=== PATIENT | female | born 1940 | race Caucasian/White ===

== ENCOUNTER 2021-02-20 17:28 | Inpatient (IN) | payer OTHER, MEDICARE, BC ==
[~2021-02-20] VITALS: Ht 157.5 cm; Wt 86.2 kg
[2021-02-20 19:25] VITALS: BP 170/80; PULSE 90; TEMP 98.7
[2021-02-20 20:00] VITALS: BP 154/69; PULSE 87; TEMP 98.7
--- NOTE | 2021-02-20 20:00 | NUR ---
PT ARRIVES TO ROOM WITH EMS, TRANSFERRED FROM ANOTHER FACILITY. PT IS MOVED INTO BED USING SLIDE BOARD ET SHEETS, GROANS IN PAIN WHEN MOVED. RICO CATHETER IS IN PLACE. 2 SKIN TEARS NOTED ON PT'S RIGHT ARM, COVERERED BY TRANSPARENT DRESSING. DRESSINGS REMOVED ET SURROUNDING SKIN CLEANED. MEPILEX DRESSINGS APPLIED. PT REPORTS FALLING @ HOME, NORMALLY USES CANE TO AMBULATE BUT HAS A WALKER ALSO FROM A PREVIOUS LEFT HIP FX. HIGH FALL RISK PRECAUTIONS PUT INTO PLACE. PT HAS PERIPHERAL IV IN PLACE ON LEFT WRIST. PT STATES THAT SHE IS WORRIED ABOUT SLEEPING TONIGHT R/T PAIN. SIENNA ZAMORA ET SCDs PLACED ON UNAFFECTED LEFT LEG. BILATERAL PEDAL PULSES ARE STRONG. PT ARRIVES WITH 2L O2 VIA NC, EMS REPORTS THAT HER SATS HAVE REMAINED @ 98% DURING TRANSFER, PT DENIES USING HOME OXYGEN. OXYGEN SATS ARE 96-100%. OXYGEN IS REMOVED ET PT CONTINUES TO SAT @ 95% ON RA. ICE PLACED TO RIGHT HIP. PT ORIENTED TO ROOM, CALL LIGHT ET FALL PRECAUTIONS. PT VERBALIZES UNDERSTANDING. BED ALARM ON. CALL LIGHT WITHIN REACH.
[2021-02-20 21:01] LABS: INR 1.2 (0.8-3.0); PROTHROMBIN TIME 13.7 SECONDS (9.7-12.8)
[2021-02-20] MEDS ORDERED: ZOCOR 20MG20 MG PO (21:10)
[2021-02-20] MEDS ORDERED: MASON NATURAL2000 IU PO (21:12)
[2021-02-20] MEDS ORDERED: PLAVIX 75MG TAB75 MG PO (21:13)
[2021-02-20] MEDS ORDERED: NEURONTIN400 MG/CAP PO (21:13)
[2021-02-20] MEDS ORDERED: CYANOCOBAL1000 MCG/M IM (21:14)
[2021-02-20] MEDS ORDERED: PRINIVIL40 MG PO (21:15)
[2021-02-20] MEDS ORDERED: TOPROL XL 25MG25 MG PO (21:17)
[2021-02-20] MEDS ORDERED: EUTHYROX100 MCG PO (21:18)
[2021-02-21] VITALS (7 sets, daily range): BP systolic 104–148; BP diastolic 51–64; PULSE 59–77; TEMP 97.9–99.8
[2021-02-21 06:49] LABS: BASO % 0.4 % (0.0-2.0); EOS % 0.6 % (0-4.0); GRAN # 5.4 K/mm3 (1.4-6.5); GRAN % 77.4 % (42.2-75.2); HEMOGLOBIN 11.9 g/dl (12.5-16.0); LYMPH # 0.6 K/mm3 (1.2-3.4); LYMPH % 7.9 % (20.0-51.0); MEAN CELL VOLUME 99 fl (80.0-100.0); MEAN CORPUSCULAR HEMOGLOBIN 34 pg (27.0-31.0); MEAN CORPUSCULAR HGB CONC 34 g/dl (33.0-37.0); MONO # 0.9 K/mm3 (0.1-0.6); MONO % 13.3 % (1.7-9.3); PLATELET COUNT 157 K/mm3 (130-400); RED BLOOD COUNT 3.51 M/mm3 (4.10-5.30); REDCELL DISTRIBUTION WIDTH-CV 13.1 % (11.5-14.5)
[2021-02-21 06:54] LABS: HEMATOCRIT 34.8 % (37.0-47.0)
[2021-02-21 07:07] LABS: CALCIUM 8.8 mg/dL (8.4-10.2); CREATININE, serum 0.8 mg/dL (0.57-1.11); POTASSIUM 4.1 mmol/L (3.5-4.5)
--- NOTE | 2021-02-21 08:00 | NUR ---
Shift assessment complete. Pt laying in bed with ice to right hip. Pt will be NPO at midnight tonight. No redness or pain to peripheral line in left hand. Petit catheter in place with securement device, urine output dark yellow and clear. Pt has SCD to left leg. Reports generalized 6/10 pain to right lower extremity due to fracture. Left pt with call light within reach.
[2021-02-21 10:13] LABS: COLLECTION METHOD CATHETER
[2021-02-21 10:47] LABS: MUCOUS Present /lpf; PH 5 (5-8); SQUAMOUS EPITHELIAL 0-2 /hpf; URINE APPEARANCE Hazy; URINE BACTERIA None Seen /hpf; URINE BILIRUBIN Negative (NEGATIVE); URINE BLOOD 2+ (NEGATIVE); URINE COLOR Yellow; URINE GLUCOSE Negative (NEGATIVE); URINE KETONE Negative (NEGATIVE); URINE LEUKOCYTE ESTERASE Negative (NEGATIVE); URINE NITRATE Negative (NEGATIVE); URINE PROTEIN(semi-quant) Negative (NEGATIVE); URINE RBC 20-50 /hpf; URINE UROBILINOGEN >=4.0 mg/dL (NEGATIVE)
--- NOTE | 2021-02-21 11:08 | NUR ---
SW met with patient at bedside to discuss d/c plan. Patient states she lost her husb a couple of yrs ago and now [place] alone [place]. Patient has 3 daughters, all of whom live in other states. Patient is planning to move to [place] where her daughter Alyce Dugan lives. Her contact number is [phone]. All 3 of her daughters are currently en route to see their mother and all 3 are listed as patient's MPOA. She uses [facility] in [place] to obtain her prescriptions and she gets them with no difficulty affording them. She has a walker but states she doesn't use it as she is quite active normally. PCP is Dr. Rodrigo Abdul in [place] and she states that if she needs to go to rehab she wants [facility]
[2021-02-21] MEDS ORDERED: ANUSOL-HC2.5% RC (11:24)
--- NOTE | 2021-02-21 13:13 | NUR ---
Initial visit; Patient requested that Braid Folder contact a Recycling Center Operator for Anointing prior to her Surgical Procedure tomorrow. Braid Folder did so.
--- NOTE | 2021-02-21 15:01 | NUR ---
Referral sent to [facility] per patient's request. MEGAN contacted [facility], spoke with Janeth ([phone]) and informed her of patient's date of surgery. MEGAN provided her with this number and will cont to follow.
[2021-02-22] VITALS (11 sets, daily range): BP systolic 106–148; BP diastolic 52–81; PULSE 56–80; TEMP 97–98
--- NOTE | 2021-02-22 01:54 | NUR ---
PT RESTING QUIETLY IN BED. SLEEPING BUT AROUSES EASILY TO NAME. ICE PACK ON RIGHT HIP. SCDs ON, FLUIDS INFUSING. RICO DRAINING CLEAR SUZE URINE. PT BECAME NPO @ MIDNIGHT. BED ALARM IS ON, CALL LIGHT WITHIN REACH.
--- NOTE | 2021-02-22 03:22 | NUR ---
PT IS AWAKE @ THIS TIME. PT HAS BEEN LAYING FLAT ON HER BACK IN BED ALL NIGHT. PT PREVIOUSLY REFUSED TO MOVE. EDUCATED PT ON IMPORTANCE OF TURNING IN BED FREQUENTLY. PT NOW APPEARS TO BE CROOKED IN BED, LYING MOSTLY ONTO HER AFFECTED RIGHT HIP ET IS UNABLE TO MOVE SELF. REPOSITIONED WITH 2 PERSON ASSIST, PILLOW PLACED BEHIND RIGHT HIP ET BETWEEN KNEES. PT YELLS OUT WITH MOVEMENT. PAIN PILL ADMINISTERED ET FRESH ICE PACK PLACED ON RIGHT HIP. BED ALARM, CALL LIGHT WITHIN REACH. WILL CONTINUE TO MONITOR.
--- NOTE | 2021-02-22 06:28 | NUR ---
PT IS PLEASANT ET TALKATIVE THIS MORNING, STATES THAT HER PAIN HAS IMPROVED. LAB IS IN DRAWING BLOOD @ THIS TIME. PT'S DAUGHTER DESMOND HAS CALLED, UPDATED ON PT CONDITION.
[2021-02-22 06:58] LABS: HEMOGLOBIN 12.5 g/dl (12.5-16.0); MEAN CELL VOLUME 100 fl (80.0-100.0); MEAN CORPUSCULAR HEMOGLOBIN 34 pg (27.0-31.0); MEAN CORPUSCULAR HGB CONC 34 g/dl (33.0-37.0); MEAN PLATELET VOLUME 9.9 fl (7.4-10.4); PLATELET COUNT 116 K/mm3 (130-400); RED BLOOD COUNT 3.72 M/mm3 (4.10-5.30)
[2021-02-22 07:13] LABS: CALCIUM 8.8 mg/dL (8.4-10.2); CREATININE, serum 0.75 mg/dL (0.57-1.11); POTASSIUM 4.1 mmol/L (3.5-4.5)
--- NOTE | 2021-02-22 08:50 | NUR ---
PT RESTING IN BED. DAUGHTER AT BEDSIDE. ANSWERED MANY QUESTIONS. AM MEDS AND PO PAIN MEDS GIVEN. PT AND DAUGHTER ANXIOUS. OFFERED REASSURANCE. WAITING ON MEDICAL CLEARANCE TO PROCEED WITH PLANNED PROCEDURE WITH DR. MIRANDA.
--- NOTE | 2021-02-22 09:35 | NUR ---
Follow-up; Patient and her daughter thanked for contacting a Odd Ticket Clerk who visited and offered Anointing yesterday and for prayer this morning prior to her surgical procedure.
--- NOTE | 2021-02-22 11:27 | NUR ---
CARYN spoke with Janeth (caryn) at [facility]; they aren't able to give me an absolute answer depending on their census and staff availability over the weekend as well as Dr. Argueta returning on Friday after being gone for 3 weeks. They will NOT accept any patients over the weekend. CARYN spoke with daughter in patient's room, Alyce Dugan, who states the surgeon told her this a.m. that she would not have to transport patient if she went to [facility]. This worker explained the transporting process with [facility] but if medically necessary, patient may go EMS. Patient and dtr expressed interest in backup plan for rehab to [facility] in [place]. CARYN sent referral to [facility] as a 2nd choice. CARYN will keep daughter informed and reminded pt and dtr that SW will also be here through the weekend if they have questions. D/C Plan: Skilled Rehab
--- NOTE | 2021-02-22 11:55 | NUR ---
PT TO SURGERY AT THIS TIME WITH [facility]. CONSENT ON CHART.
--- NOTE | 2021-02-22 16:32 | NUR ---
PT TO ROOM 325 PER BED WITH REPORT FROM SUZE CASEY PACU @4960. VSS, ASSESSMENTS COMPLETE. AQUACEL TO RIGHT HIP CDI. SCDS PLACED BILATERALLY. DAUGHTER AND SON AT BEDSIDE. IV TO PUMP PER ORDERS.
--- NOTE | 2021-02-22 17:01 | NUR ---
tea plantation worker met with patient and daughter, Alyce Joshi [phone] and discussed discharge plans. Patient's desires for rehab are 1. [facility] 2. [facility] and 3. [facility]. Eladia and patient verbalize understanding that if [facility] cannot accept patient upon discharge, [facility] or [facility] home will be needed. Awaiting confirmation on the nursing facilities. Alyce Joshi states if [facility] is secured that she can transport on the weekend and another family member will be available if discharge is after the weekend.
--- NOTE | 2021-02-22 18:45 | NUR ---
PT RESTINGIN BED. REPORT RECEIVED FROM DANA CASEY. PT COMFORTBLE AT THIS TIME. ICE PACK TO RT HIP. CALL LIGHT IN REACH. BED ALARM SET.
[2021-02-23 00:52] VITALS: BP 93/53; PULSE 58; TEMP 97.7
[2021-02-23 04:04] VITALS: BP 116/51; PULSE 66; TEMP 98.1
[2021-02-23 07:08] LABS: HEMATOCRIT 31.8 % (37.0-47.0)
[2021-02-23 08:00] VITALS: BP 111/67; PULSE 61; TEMP 98
--- NOTE | 2021-02-23 10:23 | NUR ---
SW spoke with patient to inform her that [facility] has no availability and does not accept patients over the weekend. Patient requested referral be sent to [facility]. SW spoke with AVI Delgado and SW sent referral for their review. MEGAN will continue following with d/c plan
--- NOTE | 2021-02-23 11:01 | NUR ---
SW spoke with patient about possible Inpatient Rebab at [facility]. Patient is agreeable but wants to confirm with her dtr when she arrives today. SW spoke with Lydia/SERINA and she will meet with patient once dtr is here.
[2021-02-23 11:32] VITALS: BP 113/52; PULSE 62; TEMP 97.9
--- NOTE | 2021-02-23 14:34 | NUR ---
Lydia accepts patient to Inpatient Rehab today and will arrange for patient to transfer when medically ready. Family notified and pleased.
[2021-02-23 15:50] VITALS: BP 114/52; PULSE 74; TEMP 98.1
--- NOTE | 2021-02-23 19:04 | NUR ---
PT COMPLAINS OF RT HIP PAIN. MEDICATED WITH OXYCODONE 5MG PO NOW. HAS SL TO LEFT FOREARM, FLUSHES WELL. JOHN GUERRERO TO RT HIP INTACT. JACKY TO BSD, WILL DC JACKY IN AM.
[2021-02-23 20:16] VITALS: BP 110/50; PULSE 66; TEMP 98.8
[2021-02-24] VITALS (7 sets, daily range): BP systolic 102–119; BP diastolic 50–68; PULSE 54–74; TEMP 97.9–98.9
--- NOTE | 2021-02-24 03:00 | NUR ---
COMPLAINS OF RT HIP PAIN. OXYCODONE 5MG PO AND ICE PACK APPLIED.
[2021-02-24 06:54] LABS: HEMATOCRIT 29.4 % (37.0-47.0)
[2021-02-24 06:57] LABS: CALCIUM 8.6 mg/dL (8.4-10.2); CREATININE, serum 0.79 mg/dL (0.57-1.11); POTASSIUM 3.8 mmol/L (3.5-4.5)
--- NOTE | 2021-02-24 07:24 | NUR ---
Patient is sleeping in bed. Call light and bedside table are within reach. Will continue to monitor patient throughout shift.
--- NOTE | 2021-02-24 11:52 | NUR ---
Patient's is at bedside
[2021-02-24] MEDS ORDERED: TYLENOL 500MG500 MG PO (14:45)
[2021-02-24] MEDS ORDERED: ASPIRIN E.C. 8181 MG PO (14:47)
[2021-02-24] MEDS ORDERED: ROXICODONE 55 MG/TAB PO (14:48)
--- NOTE | 2021-02-24 21:00 | NUR ---
PT ASKING FOR COMMUNION ON FRIDAY, RESIDENT PHYSICIAN AWARE. PT TAKES HS MEDS WITHOUT PROBLEM. HAS MEPILEX TO RT ELBOW AND WRIST. WEARING OXYGEN AT 1L/NC. HAS AQUACEL DRSG TO RT HIP, D/I. SL TO LEFT WRIST FLUSHES WELL. PT READY FOR BED.
--- NOTE | 2021-02-25 02:43 | NUR ---
PT ASSISTED TO BSC, MEPILEX TO COXXYX LOOSE AND CHANGED AT THIS TIME. VOIDS AND BACK TO BED. MEDICATED WITH SCHEDULED ES TYLENOL AND OXYCODONE FOR PAIN TO RT HIP.
[2021-02-25 03:26] VITALS: BP 93/47; PULSE 57; TEMP 98.1
--- NOTE | 2021-02-25 07:26 | NUR ---
Patient resting comfortably in bed. Call light and bedside table are within reach. Will continue to monitor throughout shift.
[2021-02-25 09:04] VITALS: BP 121/50; PULSE 71; TEMP 98.6
--- NOTE | 2021-02-25 10:51 | NUR ---
Patient is transferring from Surgical RM 225 to IPR room 240.
== END 2021-02-25 10:52 | DRG 522 ==
LOC: MEDICAL 17:28 → SURG 19:15
PROVIDERS: Orthopaedic Surgery; Physician Assistant; Student in an Organized Health Care Education/Training Program; ADMIT Internal Medicine
PROC: 0LQL0ZZ Repair Right Upper Leg Tendon, Open Approach (ICD-10-PCS; 2021-02-22)
PROC: 0SRR0J9 Replacement of Right Hip Joint, Femoral Surface with Synthetic Substitute, Cemented, Open Approach (ICD-10-PCS; principal; 2021-02-22 12:00)
DX: S72.001A Fracture of unspecified part of neck of right femur, initial encounter for closed fracture (principal); D62 Acute posthemorrhagic anemia; I25.10 Atherosclerotic heart disease of native coronary artery without angina pectoris; G62.9 Polyneuropathy, unspecified; I10 Essential (primary) hypertension; E03.9 Hypothyroidism, unspecified; E78.5 Hyperlipidemia, unspecified; Z66 Do not resuscitate; D51.0 Vitamin B12 deficiency anemia due to intrinsic factor deficiency; H49.20 Sixth [abducent] nerve palsy, unspecified eye; S76.911A Strain of unspecified muscles, fascia and tendons at thigh level, right thigh, initial encounter; Z96.653 Presence of artificial knee joint, bilateral; W18.30XA Fall on same level, unspecified, initial encounter; Y93.89 Activity, other specified; Y92.008 Other place in unspecified non-institutional (private) residence as the place of occurrence of the external cause; Z95.5 Presence of coronary angioplasty implant and graft; Z86.73 Personal history of transient ischemic attack (TIA), and cerebral infarction without residual deficits; Z23 Encounter for immunization
CPT/HCPCS: 99223-AI; 99232-AI; 99239; A9284; C1713; C1776; J0690; J1100; J2250; J2270; J2405; J2704; J2795; J3010

== ENCOUNTER 2021-02-23 14:55 | Inpatient (IN) | payer MEDICARE, BC ==
[~2021-02-23] VITALS: Ht 160 cm; Wt 84.0 kg
[~2021-02-23 14:55] MED LIST: ANUSOL-HC2.5% RC; CYANOCOBAL1000 MCG/M IM; EUTHYROX100 MCG PO; MASON NATURAL2000 IU PO; NEURONTIN400 MG/CAP PO; PLAVIX 75MG TAB75 MG PO; PRINIVIL40 MG PO; TOPROL XL 25MG25 MG PO; ZOCOR 20MG20 MG PO
[2021-02-24] MEDS ORDERED: TYLENOL 500MG500 MG PO (14:45)
[2021-02-24] MEDS ORDERED: ASPIRIN E.C. 8181 MG PO (14:47)
[2021-02-24] MEDS ORDERED: ROXICODONE 55 MG/TAB PO (14:48)
--- NOTE | 2021-02-25 12:00 | NUR ---
Patient arrived to IPR room 340 via WC. Patient is A & O x 4 and is requesting a pain med. This nurse informed patient she would have to wait until her orders are put in to administer medication and this nurse would give her pain meds MIK. Patient also requested to go to the bathroom. This nurse took patient via WC but patient walked back to the bed with a walker. Patient is x 1 asst. Patient has a right hip fracture and had surgery on 02/22/21. Patient is now resting comfortable in bed. Call light and bedside table are within reach.
[2021-02-25 14:42] VITALS: BP 146/74; PULSE 64; TEMP 98.6
--- NOTE | 2021-02-25 15:15 | NUR ---
Patient's 02 dropped to 86% but when this nurse had patient to take a few deep breaths in through the nose and out of the mouth, patient's SATs went to 95%/ Will continue to monitor throughout shift.
[2021-02-25 18:25] VITALS: BP 151/59; PULSE 63; TEMP 98.6
[2021-02-26 05:46] VITALS: BP 123/62; PULSE 59; TEMP 98.3
--- NOTE | 2021-02-26 07:15 | NUR ---
SCHEDULED MEDICATIONS GIVEN. SHIFT ASSESSMENT PREFORMED. PATIENT DENIES ANY PAIN OR DISCOMFORT, BUT REQUESTS THAT PAIN PILL BE GIVEN BEFORE SHE GOES DOWN FOR PT. SIENNA HOSE ON. VSS. PATIENT A&O. DENIESA ANY FURTHER NEEDS AT THIS TIME. CALL LIGHT IN REACH. FALL PRECAUTIONS IN PLACE.
--- NOTE | 2021-02-26 07:15 | NUR ---
CHANGE OF SHIFT REPORT GIVEN TO DAY SHIFT NURSE, TOÑITO CASEY.
[2021-02-26 08:23] LABS: BASO % 0.6 % (0.0-2.0); EOS # 0.1 K/mm3 (0.0-0.7); EOS % 1.8 % (0-4.0); GRAN # 4.7 K/mm3 (1.4-6.5); HEMOGLOBIN 11.1 g/dl (12.5-16.0); LYMPH # 0.6 K/mm3 (1.2-3.4); LYMPH % 9.7 % (20.0-51.0); MEAN CELL VOLUME 100 fl (80.0-100.0); MEAN CORPUSCULAR HEMOGLOBIN 34 pg (27.0-31.0); MEAN CORPUSCULAR HGB CONC 34 g/dl (33.0-37.0); MEAN PLATELET VOLUME 9.8 fl (7.4-10.4); MONO # 0.6 K/mm3 (0.1-0.6); MONO % 10.1 % (1.7-9.3); PLATELET COUNT 179 K/mm3 (130-400); RED BLOOD COUNT 3.26 M/mm3 (4.10-5.30)
[2021-02-26 08:27] LABS: HEMATOCRIT 32.5 % (37.0-47.0)
[2021-02-26 08:32] LABS: CALCIUM 9.1 mg/dL (8.4-10.2); CREATININE, serum 0.72 mg/dL (0.57-1.11); MAGNESIUM 1.9 mg/dL (1.6-2.6); POTASSIUM 3.9 mmol/L (3.5-4.5)
--- NOTE | 2021-02-26 15:27 | NUR ---
Senior Network Security Engineer was contacted by patient's daughter, Alyce (ph#[phone]) who advised she is back in [place] now and patient's fpc plan is to move up to [place]. Alyce advised they have an apartment lined up for patient there, they just need her to be stable enough for a [address]. Alyce advised patient will be transitioning primary care to Dr. Shirley Puente in [place] and has an appointment scheduled in March. Alyce emailed MEGAN patient's DPOA-HC paperwork which lists Alyce and her two sisters as DPOA-HC. MEGAN placed form on patient's chart. MEGAN met with patient as she is new to [facility]. Patient currently lives in [place], [place] and sees Dr. Abdul for primary care. Patient will be transitioning to [place], where her daughter lives. Patient normally obtains medications from [facility] pharmacy in [place]. Patient is concerned about her medications at discharge as her daughter took all of her medications with her back to [place]. Patient's daughter also took her walker with her. Patient reports she has canes at home and is normally very active. Patient advised the apartment in [place] is one level with no stairs. MEGAN will continue to follow for discharge needs.
[2021-02-26 17:05] VITALS: BP 155/62; PULSE 74; TEMP 98.2
--- NOTE | 2021-02-26 18:05 | NUR ---
Patient has had an ok day. Has been C/O of pain in her right hip. PRN medication given as ordered. Patient currently resting in bed SIENNA hose and SCD's on. Patient only ate 50% of meal. Karl crackers and pudding given to patient for snack later on. Patient denies any further pain, discomfort, or needs at this time. Call light in reach. Fall precautions in place. VSS. Patient A&O.
--- NOTE | 2021-02-26 18:48 | NUR ---
RECEIVED CHANGE OF SHIFT REPORT FROM DAY SHIFT NURSE.
--- NOTE | 2021-02-26 23:22 | NUR ---
PATIENT SLEEPING, DOES NOT WAKE WHEN ROOM ENTERED BY STAFF NURSE ON ROUNDS. BREATHING NONLABORED AND EVEN. BED ALARM ON WHEN IN BED WITH CALL LIGHT WITHIN REACH.
[2021-02-27 02:39] VITALS: BP 151/59; PULSE 72; TEMP 98.4
--- NOTE | 2021-02-27 03:20 | NUR ---
PATIENT REPORTS ANXIETY WITH NEW ONSET OF LEFT UPPER ABD PAIN THAT IS SHARP... "I FEEL LIKE I'M GOING TO ". ABD SOFT TO PALPATION TO ABD ALIVIA AND IN ALL QUADRANTS. OBSERVED PATIENT PASSING FLATUS. WHEN ASKED IF SHE WAS SOA, PATIENT REMARKED "I'M NOT SURE" VS DONE, SEE [employer], OBSERVING OXYGEN SATURATION AT 93 PERCENT ON ROOM AIR, PATIENT STATING SHE IS UNABLE TO TAKE A DEEP BREATH. SKIN WARM DRY, COLOR NORMAL. DENIES CHEST PRESSURE. CALLED ONCALL HOSP PROVIDER, INFORMED OF VS AND PATIENT'S COMPLAINT AND CONCERNS. ORDERS ENTERED BY PROVIDER, PLAN FOR ABD U.S. IN AM. PATIENT INFORMED OF PROVIDERS ORDERS FOR PAIN MED CHANGES AND TESTING ORDERED FOR MORNING. PATIENT AGREED TO HEATING PAD AND TAKING NEW PAIN MED WHEN AVAILABLE. PATIENT REPORTS NOT SURE ABOUT TAKING STOOL SOFTENERS OR MIRALAX. DENIES NAUSEA AT THIS TIME.
--- NOTE | 2021-02-27 03:29 | NUR ---
OFFERED DULCOLAX SUPPOSITORY AFTER PATIENT TOOK ULTRAM, PATIENT REFUSED SUPP AT THIS TIME. PATIENT STATED SHE WILL LET STAFF NURSE KNOW WHEN SHE WILL TAKE MORE MEDICATION TO HELP WITH ABD DISCOMFORT.
--- NOTE | 2021-02-27 05:42 | NUR ---
REPORTS PAIN TO LEFT UPPER ABD HAS NOT CHANGED BUT HEATING PAD "HAS HELPED SOME... I WAS ABLE TO REST SOME"
[2021-02-27 05:44] VITALS: BP 139/65; PULSE 72
--- NOTE | 2021-02-27 06:53 | NUR ---
CHANGE OF SHIFT REPORT GIVEN TO DAY SHIFT NURSE, TOÑITO CASEY.
--- NOTE | 2021-02-27 07:45 | NUR ---
Upon entering patient's room, patient lying in bed with a heating pad placed on her Left Upper Quadrant. Patient C/O 9/10 sharp pain. Ultrasound scheduled for 0830. Scheduled medications given. PRN pain medication given. Shift assessment preformed. Assisted patient to the restroom. Upon getting back to the bed, patient stated that she felt nauseated and needed a container. Patient vomitted approximately 20 ml of yellow bile. Patient states that she feels better after doing so. Patient placed back in bed to rest. SIENNA hose on. SCD's refused. Patient denies any further needs at this time. Call light in reach. Fall precautions in place. VSS. Patient A&O.
[2021-02-27 17:29] VITALS: BP 137/82; PULSE 69; TEMP 98.1
--- NOTE | 2021-02-27 19:07 | NUR ---
Patient has had a rough day. Has not been able to eat much due to lack of appetite. Patient encouraged to drink ensures and other fluids. Patient has 3 episodes of emesis this shift, but refuses to take any medication for nausea. PRN pain medication given as requested. Patient is currently resting in bed. States that her stomach is feeling much better and has not had an episode of emesis since 1445. Patient denies any pain, discomfort, or further needs at this time. SCD's and SIENNA hose on. Call light in reach. Fall precautions in place. VSS. Patient A&O.
--- NOTE | 2021-02-27 19:25 | NUR ---
CHANGE OF SHIFT REPORT FROM DAY SHIFT NURSE. SLEEPING CURRENTLY, DOES NOT WAKE WHEN ROOM ENTERED BY STAFF ON ROUNDS. EXIT ALARM ON WHEN IN BED WITH CALL LIGHT WITHIN REACH.
--- NOTE | 2021-02-27 20:00 | NUR ---
DENIES CHEST PAIN/SOA/NAUSEA CURRENTLY. DENIES NUMBNESS/TINGLING TO EXTREMITIES. REPORTS HAS PASSED SMALL STOOL AND WILL CONTINUES TO TAKE STOOL SOFTENERS IF NEEDED. PATIENT REPORTS IS PLEASE THAT SHE WAS ABLE TO PARTICIPATE IN THERAPY DISPITE ABD DISCOMFORT. OBSERVED GAIT STEADY WITH WALKING TO BATHROOM, USING WW APPROPRIATELY.
[2021-02-28 04:50] VITALS: BP 96/47; PULSE 74; TEMP 98
--- NOTE | 2021-02-28 06:59 | NUR ---
Received report from JACINTO Kruger. Patient is in bed sleeping. Call light and bedside table are within reach. Will continue to monitor patient throughout shift.
--- NOTE | 2021-02-28 07:04 | NUR ---
CHANGE OF SHIFT REPORT GIVEN TO DAY SHIFT NURSE, JOSE ALBERTO CASEY.
--- NOTE | 2021-02-28 16:33 | NUR ---
Hemmer Chainstitch met with patient to provide copy of team conference notes. SW advised patient we are looking at a discharge date of 03/09/21. Patient is unsure about this timeframe but would like SW to contact her daughter, Alyce. SW provided copy of team conference notes. SW to contact daughterAlyce tomorrow.
[2021-02-28 18:00] VITALS: BP 140/64; PULSE 67; TEMP 98.4
--- NOTE | 2021-03-01 03:35 | NUR ---
PT ASSISTED INTO BR USING GAITBELT, WALKER ET SBA. PT VOIDS DARK YELLOW URINE. BECOMES UNSTEADY ON FEET WHILE GETTING UP FROM TOILET BUT RECOVERS WITH ASSISTANCE. PT DENIES OTHER NEEDS @ THIS TIME. REQUESTS TO HAVE PAIN PILL ADMINISTERED BEFORE PHYSICAL THERAPY. RESPIRATIONS UNLABORED. CALL LIGHT WITH REACH, BED ALARM ON.
[2021-03-01 04:48] VITALS: BP 100/56; PULSE 69; TEMP 98.2
--- NOTE | 2021-03-01 07:00 | NUR ---
Patient is in bed sleeping. Call light and bedside table are within reach. Will continue to monitor patient throughout shift.
--- NOTE | 2021-03-01 10:30 | NUR ---
Follow-up visit; Patient thanked Graduate Assistant for looking in on her and visiting and offering prayer. Graduate Assistant will continue to follow up.
--- NOTE | 2021-03-01 13:34 | NUR ---
Admission QIM scores were reviewed by the team. Code of 4 chosen for oral hygiene was determined by team discussion to be the most usual performance before interventions for this patient during the assessment period. Code of 3 chosen for sit to lying was determined by team discussion to be the most usual performance for this patient during the assessment period. Code of 3 chosen for lying to sitting on side of bed was determined by team discussion to be the most usual performance for this patient during the assessment period. Code of 3 for sit to stand was determined by team discussion to be the most usual performance for this patient during the assessment period. Code of 3 for chair/bed to chair transfers was determined by team discussion to be the most usual performance for this patient during the assessment period.--Lydia Moser, PD
--- NOTE | 2021-03-01 16:22 | NUR ---
Change Management Consultant followed up with patient's daughter, Alyce to provide update from yesterday's team conference. SW scheduled family meeting for Friday at 1300. Patient's other daughter, Deborah (ph#[phone]) will also participate. Home Health services are recommended and Alyce advised that [facility] in [facility] would be there preference as they provide services on campus where patient's independent living apartment will be. MEGAN to follow up with [facility].
[2021-03-01 17:37] VITALS: BP 118/54; PULSE 64; TEMP 98.2
--- NOTE | 2021-03-01 21:20 | NUR ---
PT RESTING IN BED. JUST RETURNED FROM BR- HAD ANOTHER LOOSE STOOL. SEE MAR FOR IMODIUM GIVEN. PLACED BOWEL MEDS ON PRN STATUS.
[2021-03-02 05:51] VITALS: BP 117/63; PULSE 65; TEMP 97.8
--- NOTE | 2021-03-02 06:30 | NUR ---
Report received from JACINTO Romero. Pt in bed resting, denies needs, will continue to monitor.
--- NOTE | 2021-03-02 09:50 | NUR ---
Assessment charted. Pt up with therapy, requested PRN immodium for loose stools, provided. Denies needs, will continue ot monitor.
--- NOTE | 2021-03-02 15:55 | NUR ---
Printed Circuit Boards Inspector gave RNBridgette updated PCP appointment. 03/14/[address] Shirley Puente. SW contactacted [facility] and faxed referral. Genny with [facility] contacted SW who advised they would review information, however official referral would need to come from her new PCP. Genny advised she did not think this would be an issue. MEGAN met with patient to follow up before the weekend. Patient questioned if she needed HH and MEGAN advised that at this time that is the teams recommendation. Patient verbalized understanding.
--- NOTE | 2021-03-02 17:27 | NUR ---
Pt resting off and on this afternoon. Did have a incontinent episode of diarrhea today, 2 imodium given per request. PRN pain meds given per request, pt resting in bed this afternoon. Denies needs, will give report to nightshift nurse who will resume care.
[2021-03-02 18:27] VITALS: BP 116/44; PULSE 67; TEMP 98.7
[2021-03-03 05:07] VITALS: BP 114/52; PULSE 79; TEMP 98.5
--- NOTE | 2021-03-03 05:53 | NUR ---
ASSISTED TO BR WITH WALKER. PT C/O RT SHOULDER PAIN. SEE MAR FOR PAIN MED GIVEN. ICE PACK TO RT SHOULDER. CALL LIGHT IN REACH . BED ALARM SET.
[2021-03-03 14:05] LABS: COLLECTION METHOD CLEAN CATCH
[2021-03-03 14:25] LABS: MUCOUS Present /lpf; PH 5 (5-8); SQUAMOUS EPITHELIAL >50 /hpf; URINE APPEARANCE Cloudy; URINE BACTERIA Rare /hpf; URINE BILIRUBIN Negative (NEGATIVE); URINE BLOOD Negative (NEGATIVE); URINE COLOR Amber; URINE GLUCOSE Negative (NEGATIVE); URINE KETONE Negative (NEGATIVE); URINE LEUKOCYTE ESTERASE 2+ (NEGATIVE); URINE NITRATE Negative (NEGATIVE); URINE PROTEIN(semi-quant) 1+ (NEGATIVE); URINE RBC None Seen /hpf; URINE UROBILINOGEN >=4.0 mg/dL (NEGATIVE)
[2021-03-03 17:35] VITALS: BP 105/58; PULSE 71; TEMP 98.8
[2021-03-03 18:03] VITALS: BP 115/77; PULSE 86; TEMP 98.1
--- NOTE | 2021-03-03 19:22 | NUR ---
PT HAD UNEVENTFUL DAY WITH GROUP THERAPY. SHE DID COMPLAIN OF PAIN WITH URINATION, AND DUE TO THE FREQUENCY IN WHICH SHE NEEDED TO GO; PROVIDER WAS CONTACTED AND ORDERED A U/A. PHYSICIAN ORDERED ORAL ABX FOR UTI. THERE WERE NO OTHER COMPLAINTS FROM THE PATIENT. REPORT WAS GIVEN TO JACINTO VALDES.
--- NOTE | 2021-03-03 19:31 | NUR ---
PT SLEEPING. NO RESP DISTRESS.
--- NOTE | 2021-03-03 20:30 | NUR ---
ASSISTED TO BR WITH WALKER. PT C/O LT LOWER FLANK PAIN AND RT SHOULDER PAIN. SEE MAR FOR PAIN MED GIVEN. PT NEEDS ASSIST TO SIT UP ON SIDE OF BED BUT STANDS WITH SBA. NEW UTI TREATED WITH OMNICEF.
[2021-03-04 03:17] VITALS: BP 119/51; PULSE 74; TEMP 99.3
--- NOTE | 2021-03-04 03:18 | NUR ---
PT CONCERN ABOUT LT FLANK PAIN. VS STABLE. GAVE ULTRAM EARLIER. ENC PT TO ALLOW TIME FOR PAIN MED WORK. PT AGREED.
--- NOTE | 2021-03-04 03:56 | NUR ---
PT SLEEPING. NO DISTRESS.
--- NOTE | 2021-03-04 05:54 | NUR ---
PT HAVING DIFFICULTY WITH VOIDING. VOIDED 200CC DARK SUZE CLOUDY URINE. BLADDER SCANNED WITH NO RESIDUAL NOTED. PT CONTINUES C/O LT FLANK PAIN THAT HAS INCREASED TO 11/11. CALLED TAMERA COYNE FOR PT'S COMPLAINTS. SEE NEW ORDER FOR EARLY ULTRAM. SEE MAR FOR PAIN MED GIVEN. PT BACK TO BED. NEW ORDER FOR CT ABD. PT AGREEABLE TO PLAN OFR CARE.
--- NOTE | 2021-03-04 10:30 | NUR ---
Pt back from CT scan, ate some breakfast. Does not have much of an appetite. No N/V. Having pain "all over" PRN pain medication administered. SCD's in place. No needs at this time. Call light within reach.
--- NOTE | 2021-03-04 14:19 | NUR ---
Pt inquiring about doing her laundry, explained to patient that this RN and PCT do not have access to the laundry but that the nurse tomorrow may have more answers. Pt crying at this point saying she will just wear her clothes several times and doesn't want to talk about it anymore. States she wants to be left alone. Offered to assist patient into the chair, adamently refuses. Call light within reach.
[2021-03-04 16:14] VITALS: BP 109/58; PULSE 76; TEMP 98.2
--- NOTE | 2021-03-04 20:30 | NUR ---
PT REPORTS HAD A EMOTIONAL DAY TODAY. ASSISTED TO BR W CGA/ WALKER. PT ABLE TO SIT HERSELF UP FROM LYING POSITION PER SELF. AMD WITH STEADY GAIT. LT FLANK PAIN RESOLVED. VOIDING CONCENTRATED SUZE URINE. DENIES DYSURIA. BACK TO BED. ABLE TO LIFT LEGS UP INTO BED PER SELF TO A LYING POSITION. SCD'S ON BILAT. CALL LIGHT IN REACH. BED ALARM SET.
[2021-03-05 04:48] VITALS: BP 109/56; PULSE 69; TEMP 97.5
[2021-03-05 06:11] LABS: MEAN CELL VOLUME 101 fl (80.0-100.0); MEAN CORPUSCULAR HEMOGLOBIN 34 pg (27.0-31.0); MEAN CORPUSCULAR HGB CONC 34 g/dl (33.0-37.0); PLATELET COUNT 329 K/mm3 (130-400); RED BLOOD COUNT 2.94 M/mm3 (4.10-5.30); REDCELL DISTRIBUTION WIDTH-CV 13.3 % (11.5-14.5)
[2021-03-05 06:15] LABS: HEMATOCRIT 29.8 % (37.0-47.0)
[2021-03-05 06:35] LABS: CALCIUM 8.4 mg/dL (8.4-10.2); CREATININE, serum 0.74 mg/dL (0.57-1.11); MAGNESIUM 2.2 mg/dL (1.6-2.6); PHOSPHOROUS 3.7 mg/dL (2.3-4.7); POTASSIUM 4.5 mmol/L (3.5-4.5)
--- NOTE | 2021-03-05 10:25 | NUR ---
PT UP TO SHOWER AFTER BREAKFAST. DRESSING CHANGED IN BR. INCISION CDI.
--- NOTE | 2021-03-05 12:09 | NUR ---
DRESSING CHANGE COMPLETE. AQUACEL PLACED OVER INCISION. INTERNAL STICH VISABLE EXTERNALLY.
--- NOTE | 2021-03-05 14:48 | NUR ---
Process Stripper particpated in family meeting which included PT/OT/ST and patient's daughters Alyce and Deborah who participated by phone. PT/OT/ST reviewed patient's progress and advised they felt confident that patient will be ready for discharge by Friday, however advised that patient is still working on feeling confident with her progress. Plan is for patient to discharge on Friday to an Independent Living Apartment in [place] and have Home Health services. SW advised since patient is moving to a different state, the HH orders will have to come from her new primary care physician and patient's daughters verbalized understanding. Patient's daughters requested that discharge paperwork be sent to the new PCP. Patient's daughter, Deborah will bring patient's walker for discharge.
[2021-03-05 15:16] VITALS: BP 120/63; PULSE 74; TEMP 98.3
--- NOTE | 2021-03-05 17:52 | NUR ---
PT CALLED FOR SOME IMODIUM FOR LOOSE STOOLS.
--- NOTE | 2021-03-05 18:54 | NUR ---
RECEIVED CHANGE OF SHIFT REPORT FROM DAY SHIFT NURSE.
--- NOTE | 2021-03-05 22:51 | NUR ---
INITIALLY REQUESTED TYLENOL WHEN WALKING BACK TO BED FROM BATHROOM THEN DECIDED WILL TAKE TYLENOL LATER WHEN SHE FEELS SHE NEEDS IT TO SLEEP BETTER.
--- NOTE | 2021-03-06 02:43 | NUR ---
PATIENT SLEEPING, DOES NOT WAKE WHEN DOOR TO ROOM IS OPENED BY STAFF NURSE ON ROUNDS. BREATHING OBSERVED AND NONLABORED AND EVEN. BED ALARM ON WITH CALL LIGHT WITHIN REACH.
[2021-03-06 05:24] VITALS: BP 119/52; PULSE 71; TEMP 98.3
--- NOTE | 2021-03-06 06:50 | NUR ---
Report received from JACINTO Kruger. Patient is sleeping in bed. Call light and bedside table are within reach. WIll continue to monitor patient throughout shift.
--- NOTE | 2021-03-06 07:08 | NUR ---
CHANGE OF SHIFT REPORT GIVEN TO DAY SHIFT NURSE, JOSE ALBERTO CASEY.
--- NOTE | 2021-03-06 13:22 | NUR ---
Patient has a scratch on right, upper,inner thigh. This nurse covered it with a bandaid.
--- NOTE | 2021-03-06 13:59 | NUR ---
Patient stated every time she gets up, she has an episode of diarrhea, but just scant amounts. Patient requested Loperamide. This nurse complied with request.
--- NOTE | 2021-03-06 15:15 | NUR ---
Patient has completed all therapies for the day and is resting in recliner. Patient denies pain at this time. Call light and bedside table are within reach.
--- NOTE | 2021-03-06 17:30 | NUR ---
Patient self ambulated from bathroom. Reminded patient to use call light before ambulating.
[2021-03-06 18:00] VITALS: BP 115/64; PULSE 73; TEMP 97.4
--- NOTE | 2021-03-06 18:50 | NUR ---
Report received from JACINTO Luciano. Pt is laying in bed sleeping at this time. Will continue to check on patient.
--- NOTE | 2021-03-06 19:03 | NUR ---
This nurse gave report to corporate human resources manager RNGauri.
[2021-03-07 05:22] VITALS: BP 100/55; PULSE 55; TEMP 98.2
--- NOTE | 2021-03-07 15:20 | NUR ---
Patient has completed all therapies for the day and is resting in bed. Call light and bedside table are within reach. Patient is now MOD I in room.
--- NOTE | 2021-03-07 16:45 | NUR ---
Ordering Box Operator met with patient to provide copy of team conference notes. Patient has no additional questions at this time and would like to rest.
[2021-03-07 17:00] VITALS: BP 106/50; PULSE 61; TEMP 97.7
[2021-03-08 04:58] VITALS: BP 99/50; PULSE 68; TEMP 98.4
--- NOTE | 2021-03-08 06:56 | NUR ---
Report received from JACINTO Romero. Patient is up and going to the bathroom and denies pain at this time. Call light and bedside table are within reach. Will continue to monitor patient throughout shift.
--- NOTE | 2021-03-08 11:51 | NUR ---
Director Of Channel Marketing contacted patient's daughter, Alyce to provide update. Alyce advised they are eager to bean picker patient tomorrow and get her to her new apartment.
--- NOTE | 2021-03-08 16:00 | NUR ---
Patient has completed all therapies for the day and is resting in recliner. Friends are at bedside. Patient denies pain at this time. Call light and bedside table are within reach.
[2021-03-08 18:06] VITALS: BP 109/55; PULSE 69; TEMP 98.1
--- NOTE | 2021-03-08 20:40 | NUR ---
PT MOD I IN ROOM. DENIES PAIN. NO DISTRESS. CALL LIGHT IN REACH.
[2021-03-09 05:19] VITALS: BP 124/56; PULSE 68; TEMP 98.2
--- NOTE | 2021-03-09 06:42 | NUR ---
shift report received from JACINTO Romero
--- NOTE | 2021-03-09 07:30 | NUR ---
had breakfast and tolerated well, up to bathroom independently, moves with slow steady gait, back to bed, full assessment completed, see interventions for further info, denies pain or needs at this time, will try to rest a while, states she didn't sleep well during the night
[2021-03-09] MEDS ORDERED: ASPIRIN E.C. 8181 MG PO (08:28)
[2021-03-09] MEDS ORDERED: LEADER CLE17 GM/Dose PO (08:30)
[2021-03-09] MEDS ORDERED: ULTRAM 50MG TAB50 MG PO (09:17)
[2021-03-09] MEDS ORDERED: PLAVIX 75MG TAB75 MG PO (09:29)
[2021-03-09] MEDS ORDERED: TOPROL XL 25MG25 MG PO (09:30)
[2021-03-09] MEDS ORDERED: PRINIVIL40 MG PO (09:30)
[2021-03-09] MEDS ORDERED: ZOCOR 20MG20 MG PO (09:30)
[2021-03-09] MEDS ORDERED: EUTHYROX100 MCG PO (09:31)
[2021-03-09] MEDS ORDERED: NEURONTIN400 MG/CAP PO (09:31)
--- NOTE | 2021-03-09 10:45 | NUR ---
up and about in room independently, has 1/2 cm pressure healing area to right buttock, foam dressing reapplied
--- NOTE | 2021-03-09 11:45 | NUR ---
family here for discharge, discharge instructions given to patient and her daughter and [id number], verbalizes understanding
--- NOTE | 2021-03-09 12:12 | NUR ---
discharged with all belongings to car, accompanied by family
--- NOTE | 2021-03-09 15:06 | NUR ---
Box Truck Driver met with patient and reviewed IM form. Patient verbalized understanding of patient rights and provided signature. SW provided copy to patient and placed form in chart. MEGAN contacted Dr. Puente's office, patient's new primary care provider and faxed discharge summary and orders. [facility] orders will need to be written by patient's new PCP.
== END 2021-03-09 12:12 | disposition home health service (06) | DRG 560 ==
PROVIDERS: ADMIT Internal Medicine
DX: S72.041D Displaced fracture of base of neck of right femur, subsequent encounter for closed fracture with routine healing (principal); N39.0 Urinary tract infection, site not specified; R26.89 Other abnormalities of gait and mobility; M25.511 Pain in right shoulder; G62.9 Polyneuropathy, unspecified; I25.10 Atherosclerotic heart disease of native coronary artery without angina pectoris; E03.9 Hypothyroidism, unspecified; E78.5 Hyperlipidemia, unspecified; I10 Essential (primary) hypertension; Z66 Do not resuscitate; W17.89XD Other fall from one level to another, subsequent encounter; Y92.009 Unspecified place in unspecified non-institutional (private) residence as the place of occurrence of the external cause; Z73.6 Limitation of activities due to disability; Z95.5 Presence of coronary angioplasty implant and graft; Z96.641 Presence of right artificial hip joint; Z79.899 Other long term (current) drug therapy; Z79.891 Long term (current) use of opiate analgesic; Z86.73 Personal history of transient ischemic attack (TIA), and cerebral infarction without residual deficits; Z96.653 Presence of artificial knee joint, bilateral; Z79.82 Long term (current) use of aspirin; Z88.8 Allergy status to other drugs, medicaments and biological substances; D51.0 Vitamin B12 deficiency anemia due to intrinsic factor deficiency; R11.2 Nausea with vomiting, unspecified
CPT/HCPCS: 99222-AI; 99231-AI; 99232-AI; 99233-AI; 99239